=== PATIENT | male | born 1960 | race Caucasian/White ===

== ENCOUNTER 2018-02-22 07:30 | Day surgery (SDC) | payer OTHER ==
[2018-02-16 16:59] VITALS: BMI 30.7
[2018-02-22] MEDS ORDERED: MITOMYCIN 0.02% EYE DROPS - 2ML VIAL IO ONE (09:00)
[2018-02-22] MEDS ORDERED: TETRACAINE 0.5% OPHTH SOLN 2 ML BOTTLE ONE (10:00)
[2018-02-22] MEDS ORDERED: OXYMETAZOLINE 0.05% NASAL SOLUTION 15 ML BOTTLE NS ONE (10:00)
[2018-02-22] MEDS ORDERED: BUPIVACAINE HCL/PF 0.5% (5MG/ML) 10 ML VIAL ONE (10:00)
[2018-02-22] MEDS ORDERED: THROMBIN (BOVINE) 5,000 UNIT VIAL TP ONE ×2 (10:00)
[2018-02-22] MEDS ORDERED: GELATIN, ABSORBABLE 100 EACH SPONGE TP ONE (10:00)
[2018-02-22] MEDS ORDERED: LIDOCAINE 1%/EPI 1:100000 (20 ML MULTI DOSE VIAL) ONE (10:00)
[2018-02-22] MEDS ORDERED: ERYTHROMYCIN 0.5% OPHTHALMIC OINTMENT 3.5 GM TUBE ONE (10:00)
[2018-02-22] MEDS ORDERED: ceFAZolin SODIUM 1 GM VIAL ONE (10:17)
[2018-02-22] MEDS ORDERED: MIDAZOLAM HCL 2 MG/2 ML SINGLE DOSE VIAL ONE (10:18)
[2018-02-22] MEDS ORDERED: PROPOFOL 20 ML ONE ×2 (10:18→10:21)
[2018-02-22] MEDS ORDERED: DESFLURANE GAS 240 ML BOTTLE IH ONE (10:23)
--- NOTE | 2018-02-22 12:33 | OP ---
DATE OF OPERATION: 02/22/2018 PREOPERATIVE DIAGNOSIS: Recurrent nasal lacrimal obstruction, right. POSTOPERATIVE DIAGNOSIS: Recurrent nasal lacrimal obstruction, right. PROCEDURE: 1. Dacryocystorhinostomy, right. 2. Silicone intubation right lacrimal system. 3. Lacrimal sac biopsy. 4. Adjuvant topical mitomycin 0.2 mg/mL. 5. Endoscopy. SURGEON: Taylor Khalil MD REAL ESTATE CLOSER: None. ANESTHESIA: LMA. COMPLICATIONS: None. ESTIMATED BLOOD LOSS: 10-20 mL. OPERATIVE REPORT: The patient was brought to the operating room and placed on the operating room table. Vital signs monitored by Anesthesia. Tetracaine was placed in both eyes. The patient was placed under LMA anesthesia. A time-out was performed. Tear trough incision was marked in a similar area to the prior incision in the right tear trough extending from the medial canthal tendon to the right lower lid. The patient was given a 50/50 mixture of 2% Xylocaine, 1:100,000 epinephrine, 0.5% Marcaine for a total of 3-4 mL right medial canthus down to the lateral wall of the nose, dorsal nasal artery, anterior lacrimal crest, infraorbital neurovascular bundle, and nasal 1/3 of the upper and lower lid. Under direct visualization, the lateral wall of the nose was injected in the area of the medial meatus and the external areas. The right nostril was packed with cottonoids moistened with thrombin. The patient was prepped and draped in the usual sterile fashion exposing both eyes. The left eye was taped closed with Steri-Strips. The right eye had the procedure performed as follows. Tear trough was incised and then gentle with the Good scissors was used to spread the tissues down to the anterior lacrimal crest. The anterior lacrimal crest was incised with a Pacific needle, and periosteum was incised laterally the mucosal anastomosis exposing the prior osteotomy, which was still widely patent. The upper and lower punctum were dilated and intubated tenting the wall medially, and the sac was opened on its medial surface. Anterior and posterior lacrimal flaps were created. The posterior lacrimal sac flap was biopsied. It should be noted the sac was quite scarred and contracted as most likely from prior inflammation and surgery, and the internal canaliculus was removed of any scar tissue and dissected out so the probe was passed freely through the lower punctum and through the common canaliculus and through the upper punctum and through the common canaliculus extending into the same general area with minimal resistance. At this point, the naris was packed with cottonoids moistened with thrombin, and a small piece of Gelfoam soaked in 0.2 mg/mL mitomycin was then placed into the internal surface of the lacrimal sac at the opening of the internal ostium and left there for 3 minutes. It was then removed, and 3 changes of BSS was used for copious irrigation of the surrounding tissues and the lacrimal sac removing any remains of the mitomycin. The system was then intubated with Diamond probes, which moved freely through the canaliculus and the upper and lower punctum. There was a slight glitch noted when the proximal end of the Diamond tube was advanced through the opening in the sac where the silicone was switched to the stent; however, once that passed, both the upper and lower lids the silicone itself moved freely through the system without any resistance whatsoever. The anterior lacrimal sac flap was carried to the periosteum anterior to the osteotomy site with an interrupted 4-0 chromic suture. The skin was closed with 5-0 chromic subcuticular suture, and the skin itself was closed with a running 6-0 plain with plastic technique. The stents were removed from the probes, tied with locking knot, secured to the right external naris with a single 6-0 Prolene with minimal tension on the loop in the right medial canthus. The endoscope was introduced demonstrating good clearance of the ostium from the nasal septum with good positioning of the tubes. Afrin was sprayed in the nose. Erythromycin ointment was placed on the sutures, and the patient was awaken from anesthesia and taken to the recovery room in stable condition. TAYLOR KHALIL M.D. [id number]
[2018-02-22 13:01] VITALS: TEMP 97.7
[2018-02-22 14:03] VITALS: BP 114/73; PULSE 68
--- NOTE | 2018-03-01 14:04 | PATH ---
Surgical Pathology Report Patient Name: DONTRELL ESCALONA [facility]. Rec. #: [id number] /Age/Gender: 1960 (Age: 57) / M Account: [id number] Location: [facility] Taken: 02/22/2018 Received: 02/22/2018 Reported: 03/01/2018 Physicians: Jorge Carty Specimen(s) Received RIGHT LACRIMAL SAC Clinical History Blocked right tear duct Final Diagnosis LACRIMAL SAC, RIGHT, EXCISION: LACRIMAL SAC TISSUE SHOWING MILD CHRONIC INFLAMMATION AND FIBROSIS. Electronically Signed Nila Singh M.D. Gross Description Received in formalin, labeled "lacrimal sac right" is a gaytan, irregular portion of soft tissue measuring 0.3 cm. in greatest dimension. The specimen is submitted in toto in one cassette. 02/23/2018 saudi02/23/2018
== END 2018-02-22 13:45 | disposition home or self-care (01) ==
LOC: FASU 07:30
PROVIDERS: ATTEND Ophthalmology
PROC: 087X0DZ Dilation of Right Lacrimal Duct with Intraluminal Device, Open Approach (ICD-10-PCS; 2018-02-22)
PROC: 09JY8ZZ Inspection of Sinus, Via Natural or Artificial Opening Endoscopic (ICD-10-PCS; 2018-02-22)
PROC: 081X0Z3 Bypass Right Lacrimal Duct to Nasal Cavity, Open Approach (ICD-10-PCS; principal; 2018-02-22 10:53)
DX: H04.551 Acquired stenosis of right nasolacrimal duct (principal)
CPT/HCPCS: 88304-TC; 94760